=== PATIENT | female | born 1965 | race Caucasian/White ===

== ENCOUNTER 2017-02-01 08:25 | Day surgery (SDC) | payer BC ==
[~2017-02-01] VITALS: Ht 157.5 cm; Wt 74.8 kg
[~2017-02-01 08:25] MED LIST: B COMPLEX1 TA1 PO; FISH OIL1000 MG PO; HAWTHORNE PO; MEDROL 4MG. DOSE4 MG PO; PROBIOTIC FORMU1 CA1 PO; SEPTRA DS 800 M1 TAB PO
--- NOTE | 2017-02-01 09:53 | Operative Note ---
Upper GI Endoscopy Procedure date: 02/01/17 Date of : [birth year] Procedure:Upper GI Endoscopy Esophagogastroduodenoscopy with cold biopsies Indications: Mrs. Matamoros is a 51-year-old female here for diagnostic panendoscopy. She does have a history of gastroesophageal reflux disease. She was diagnosed with reflux years ago. She does report heartburn and reflux with moderate bloating. She has some postprandial LEFT upper quadrant pain, fullness and bloating. She does state that Nexium helps. She reports no chest pain or dysphagia. She does state that she has an intolerance to dairy and wheat. The patient has a long history of irritable bowel syndrome. She formerly had more constipation. Now she alternates between constipation and diarrhea. She does report some intermittent hemorrhoidal spotting or bleeding. She has bowel movements that range and are often yellow or green. She reports no weight loss or family history of colon cancer. Her last endoscopy/colonoscopy was more than 5 years ago. Performing Provider: Ernesto Sarkar MD Referring Provider: Emilia BRONSON/Rashi Duarte M.D. Sedation: MAC sedation Procedure: Prior to the procedure, a history and physical exam was performed, and patients medications and allergies were reviewed. The risks and benefits of the procedure and the sedation options and risks were discussed with the patient. All questions were answered and informed consent was obtained. The patient was brought to the procedure room. Patient identification and proposed procedure were verified by the physician and the nurse. The patient was placed in a left lateral decubitus position and the scope was passed under direct vision. Throughout the procedure, the patient's blood pressure, pulse, and oxygen saturations were monitored continuously. The endoscope was introduced through the mouth, and advanced to the second part of duodenum. The upper GI endoscopy was accomplished without difficulty. The patient tolerated the procedure well. Findings: The scope was passed directly into the upper esophagus and advanced to the third portion of the duodenum. The post bulbar duodenum and duodenal bulb were normal with normal mucosa and conniventes. 2 biopsies were taken from the duodenum to rule out celiac disease. The scope was withdrawn through a normal duodenal bulb and pylorus into the stomach. There was moderate bile reflux with mild linear reactive gastritis. The remainder of the antrum, body and fundus of the stomach were grossly normal. Upon retroflexion there was a very small sliding hiatal hernia. 2 biopsies were taken in the antrum and along the lesser curvature for histology. The scope was then withdrawn into the esophagus. There was no evidence of reflux esophagitis. There were 2 very short tongues of salmon- colored mucosa that were biopsied to rule out intestinal metaplasia. There was mild esophageal dysmotility. The remainder of the esophageal mucosa was normal. Immediate complications: None EBL (ml): 0 Impression: 1. Bile reflux with mild linear reactive gastritis 2. Nonerosive gastroesophageal reflux disease with very small sliding hiatal hernia and mild esophageal dysmotility Recommendations: I do feel that the patient has functional gastroesophageal reflux disease and functional bowel disease. I will follow-up the biopsies. I would consider adding promotility therapy and fiber bowel regimen. We will discuss dietary measures. I will follow with diagnostic colonoscopy. at 0921
--- NOTE | 2017-02-01 10:19 | Operative Note ---
Colonoscopy ([facility]) Procedure date: 02/01/17 Date of : [birth year] Procedure:Colonoscopy Colonoscopy with cold snare polypectomy Indications: Mrs. Matamoros is a 51-year-old female who is here for diagnostic panendoscopy. She does have a long history of IBS. She has LEFT upper quadrant abdominal pain and bloating. She describes an intolerance to dairy and wheat. She formerly had more constipation but now alternates between constipation and diarrhea. She reports no weight loss or family history of colon cancer. Her last colonoscopy was more than 5 years ago. Performing Provider: Ernesto Sarkar MD Referrring Provider: Emilia BRONSON/Rashi Duarte M.D. Sedation: MAC sedation Procedure: Prior to the procedure, a history and physical exam was performed, and patient medications and allergies were reviewed. The risks and benefits of the procedure and the sedation options and risks were discussed with the patient. All questions were answered and informed consent was obtained. Patient identification and proposed procedure were verified by the physician and the nurse. The patient was placed in a left lateral decubitus position. Throughout the procedure, the patient's blood pressure, pulse, and oxygen saturations were monitored continuously. Findings: On digital rectal examination there was normal rectal tone. There were no external hemorrhoids. The colonoscope was introduced through the anal canal to the rectum and advanced to the cecum. The ileocecal valve and appendiceal orifice were identified. The scope was advanced a short distance into the ileum which appeared grossly normal. The scope was then withdrawn into the colon. The cecum, ascending and transverse colon and mucosa were grossly normal. There were scattered diverticuli throughout the descending and sigmoid colon (LEFT colon). There was a single 6-7 mm polyp in the sigmoid colon removed via cold snare polypectomy. The rectum itself was normal. Upon retroflexion within the rectum there were grade 2 internal hemorrhoids. Impressions: 1. Sigmoid colon polyp 2. Left-sided diverticulosis 3. Grade 2 internal hemorrhoids with external hemorrhoidal tags Recommendations: I will follow up the polyp pathology and recommend repeat colonoscopy again in 5 -10 years based upon the polyp histology. I would encourage dietary measures, fiber bowel regimen and promotility therapy. Complications: None EBL (ml): 0 at 1018
[2017-02-01 11:21] VITALS: BP 133/93
== END 2017-02-01 10:58 | disposition home or self-care (01) ==
LOC: SDC 08:25
PROVIDERS: Internal Medicine Gastroenterology
PROC: 0DB98ZX Excision of Duodenum, Via Natural or Artificial Opening Endoscopic, Diagnostic (ICD-10-PCS; 2017-02-01)
PROC: 0DBN8ZX Excision of Sigmoid Colon, Via Natural or Artificial Opening Endoscopic, Diagnostic (ICD-10-PCS; 2017-02-01)
PROC: 0DB78ZX Excision of Stomach, Pylorus, Via Natural or Artificial Opening Endoscopic, Diagnostic (ICD-10-PCS; principal; 2017-02-01 09:30)
DX: K21.9 Gastro-esophageal reflux disease without esophagitis (principal); K44.9 Diaphragmatic hernia without obstruction or gangrene; K22.4 Dyskinesia of esophagus; D12.5 Benign neoplasm of sigmoid colon; K57.30 Diverticulosis of large intestine without perforation or abscess without bleeding; K64.1 Second degree hemorrhoids